=== PATIENT | male | born 1955 | race African-American/Black ===

== ENCOUNTER 2017-05-12 06:48 | Emergency (ER) | payer SELFPAY ==
[2017-05-12 06:56] VITALS: BP 172/110
[2017-05-12] MEDS ORDERED: PREDNISONE 20 MG TABLET PO ONE (08:20)
--- NOTE | 2017-05-12 08:23 | ER Document Report ---
ED General - General Chief Complaint: Feet Swelling Stated Complaint: SWOLLEN ANKLES AND KNEES Time Seen by Provider: 05/12/17 08:05 TRAVEL OUTSIDE OF THE [place] IN LAST 30 DAYS: No - HPI Patient complains to provider of: Bilateral hand and foot pain Notes: Patient coming in for complaining of 3 months of bilateral hand and foot pain states swelling of all his joints in his hands patient has also had ankle and knee swelling. Denies any fevers chills nausea vomiting has not seen a family practitioner and "quite some time. - Related Data Allergies/Adverse Reactions: No Known Allergies Allergy (Unverified 05/12/17 06:56) Past Medical History - Social History Smoking Status: Unknown if Ever Smoked Frequency of alcohol use: None Drug Abuse: None Family History: Reviewed & Not Pertinent Patient has suicidal ideation: No Patient has homicidal ideation: No Renal/ Medical History: Denies: Hx Peritoneal Dialysis Review of Systems - Review of Systems Constitutional: No symptoms reported EENT: No symptoms reported Cardiovascular: No symptoms reported Respiratory: No symptoms reported Gastrointestinal: No symptoms reported Genitourinary: No symptoms reported Male Genitourinary: No symptoms reported Musculoskeletal: Other - Arthralgias Skin: No symptoms reported Hematologic/Lymphatic: No symptoms reported Neurological/Psychological: No symptoms reported Physical Exam - Vital signs Vitals: Temp Pulse Resp BP Pulse Ox 97.9 F 82 18 172/110 H 99 05/12/17 06:49 05/12/17 06:49 05/12/17 06:49 05/12/17 06:49 05/12/17 06:49 Interpretation: Normal - General General appearance: Appears well, Alert - HEENT Head: Normocephalic, Atraumatic Eyes: Normal Pupils: PERRL - Respiratory Respiratory status: No respiratory distress Chest status: Nontender Breath sounds: Normal Chest palpation: Normal - Cardiovascular Rhythm: Regular Heart sounds: Normal auscultation Murmur: No - Abdominal Inspection: Normal Distension: No distension Bowel sounds: Normal Tenderness: Nontender Organomegaly: No organomegaly - Back Back: Normal, Nontender - Extremities General upper extremity: Normal inspection, Tender - Patient has bilateral swelling at the PIP joints of both hands swelling the knees and of the ankles there is minimal there is no redness erythema no signs of septic joint. More consistent with RA are normal arthritis, Normal color, Normal ROM, Normal temperature General lower extremity: Normal inspection, Nontender, Normal color, Normal ROM , Normal temperature, Normal weight bearing. No: Hunter's sign - Neurological Neuro grossly intact: Yes Cognition: Normal Orientation: AAOx4 Nogal Coma Scale Eye Opening: Spontaneous Zoltan Coma Scale Verbal: Oriented Nogal Coma Scale Motor: Obeys Commands Nogal Coma Scale Total: 15 Speech: Normal Motor strength normal: LUE, RUE, LLE, RLE Sensory: Normal - Psychological Associated symptoms: Normal affect, Normal mood - Skin Skin Temperature: Warm Skin Moisture: Dry Skin Color: Normal Course - Re-evaluation Re-evalutation: 05/12/17 14:51 No signs of deformities patient's symptoms are consistent with arthritis will discharge home prednisone encouraged to use Tylenol Motrin for pain control follow-up primary care physician for further testing. - Vital Signs Vital signs: Temp Pulse Resp BP Pulse Ox 97.9 F 82 18 172/110 H 99 05/12/17 06:49 05/12/17 06:49 05/12/17 06:49 05/12/17 06:49 05/12/17 06:49 Discharge - Discharge Clinical Impression: Arthritis Condition: Good Disposition: HOME, SELF-CARE Instructions: Anti-Inflammatory Medication (OM), Arthralgia ([facility]), Arthritis ( [facility]), Family Physicians / Practices Additional Instructions: Your examination today is consistent with arthritis. It is very important you follow-up with a primary care physician for further evaluation of your arthritic changes. Arthritis is mostly treated with anti-inflammatory medication such as Motrin Tylenol we will start you on a short course of prednisone which may help out with your symptoms. It is highly important that she follow-up with your primary care physician Prescriptions: Prednisone [Deltasone] 60 mg PO DAILY #24 tablet Forms: Return to Work
== END 2017-05-12 08:42 | disposition home or self-care (01) ==
LOC: EDBD 06:48 → ER 06:48
DX: M79.89 Other specified soft tissue disorders (principal); M19.90 Unspecified osteoarthritis, unspecified site
CPT/HCPCS: 99283; J7512